=== PATIENT | female | born 1940 | race Caucasian/White ===

== ENCOUNTER 2024-03-23 06:17 | Day surgery (SDC) | payer OTHER ==
[~2024-03-23] VITALS: Ht 152.4 cm; Wt 67.2 kg
[2024-03-23] MEDS ORDERED: SODIUM CHLORIDE 0.9% 1,000 ML ONE (07:43)
[2024-03-23] MEDS: SODIUM CHLORIDE 0.9% 1,000 ML IV ONE (08:41)
[2024-03-23] MEDS ORDERED: MIDAZOLAM HCL 2 MG/2 ML VIAL ONE (08:45)
[2024-03-23] MEDS ORDERED: FentaNYL CITRATE PF 100 MCG/2 ML VIAL ONE (08:45)
[2024-03-23 09:18] VITALS: PULSE 64; RESP 21; O2SAT 100
[2024-03-23] MEDS ORDERED: MethylPREDNISolone SOD SUCC 125 MG/2 ML VIAL ONE (10:15)
[2024-03-23] MEDS: MethylPREDNISolone SOD SUCC 125 MG/2 ML VIAL IVP ONE (10:20)
[2024-03-23] MEDS ORDERED: LIDOCAINE 2% 11 ML JELLY ONE (12:00)
[2024-03-23] MEDS ORDERED: LIDOCAINE 4% 50 ML SOLUTION ONE (12:00)
[2024-03-23] MEDS ORDERED: BENZOCAINE 20% 50 MCG/SPRAY 57 GM ONE (12:00)
== END 2024-03-23 12:45 | disposition home or self-care (01) ==
LOC: SURGERY 06:17
PROVIDERS: ATTEND Internal Medicine Critical Care Medicine
DX: R05.3 Chronic cough (principal); R06.2 Wheezing; R49.0 Dysphonia; R04.2 Hemoptysis; R06.1 Stridor; R91.8 Other nonspecific abnormal finding of lung field; B37.0 Candidal stomatitis; R60.0 Localized edema
CPT/HCPCS: 87206; 87101; 87220; 87070; 88108; 31623; 31624; 71045; 87015; J3010; J2250; J2919; J7030; Z7610

== ENCOUNTER 2024-11-11 06:20 | Day surgery (SDC) | payer OTHER ==
[~2024-11-11] VITALS: Ht 152.4 cm; Wt 66.4 kg
[2024-11-11] MEDS ORDERED: LIDOCAINE 4% 50 ML SOLUTION TP ONE (06:21)
[2024-11-11] MEDS ORDERED: LIDOCAINE 2% 11 ML JELLY TP ONE (06:21)
[2024-11-11] MEDS ORDERED: BENZOCAINE 20% 50 MCG/SPRAY 57 GM TP ONE (06:21)
[2024-11-11] MEDS ORDERED: ALBUTEROL SULFATE 2.5 MG/0.5 ML NEB SOLUTION NEB ONE (06:21)
[2024-11-11] MEDS ORDERED: LOSA-381 PO (06:46)
[2024-11-11] MEDS ORDERED: ATOR10TA69 PO (06:46)
[2024-11-11] MEDS ORDERED: AMLO2.5T29 PO (06:46)
[2024-11-11] MEDS ORDERED: GABA-529 PO (06:46)
[2024-11-11] MEDS ORDERED: ALEN70TA80 PO (06:46)
[2024-11-11] MEDS ORDERED: CYAN-53 PO (06:46)
[2024-11-11] MEDS ORDERED: ISOS30TA68 PO (06:46)
[2024-11-11] MEDS ORDERED: ALLO300T2 PO (06:46)
[2024-11-11] MEDS ORDERED: MONT-40 PO (06:46)
[2024-11-11] MEDS ORDERED: PANT40TA54 PO (06:46)
[2024-11-11] MEDS ORDERED: ASPI-1450 PO (06:46)
[2024-11-11] MEDS ORDERED: CARV12.530 PO (06:46)
[2024-11-11] MEDS ORDERED: FLUT16H NASAL (06:46)
[2024-11-11] MEDS ORDERED: DOXY100C5 PO (06:46)
[2024-11-11] MEDS ORDERED: CLOP75TA32 PO (06:46)
[2024-11-11] MEDS ORDERED: ALBU18HF12 IH (06:47)
[2024-11-11] MEDS ORDERED: ASCO500C18 PO (06:47)
[2024-11-11] MEDS ORDERED: SODIUM CHLORIDE 0.9% 1,000 ML ONE (06:51)
[2024-11-11] MEDS: SODIUM CHLORIDE 0.9% 1,000 ML IV ONE (07:12)
[2024-11-11] MEDS ORDERED: FentaNYL CITRATE PF 100 MCG/2 ML VIAL ONE (08:43)
[2024-11-11] MEDS ORDERED: MIDAZOLAM HCL 2 MG/2 ML VIAL ONE (08:43)
== END 2024-11-11 09:15 | disposition home or self-care (01) ==
LOC: SURGERY 06:20
PROVIDERS: ATTEND Internal Medicine Critical Care Medicine
DX: R05.3 Chronic cough (principal); Z53.8 Procedure and treatment not carried out for other reasons; R91.1 Solitary pulmonary nodule; E78.00 Pure hypercholesterolemia, unspecified; I10 Essential (primary) hypertension; Z98.51 Tubal ligation status; Z95.0 Presence of cardiac pacemaker; Z98.890 Other specified postprocedural states; Z79.899 Other long term (current) drug therapy
CPT/HCPCS: 93005; J7030; J2250; J3010

== ENCOUNTER 2024-12-16 06:21 | Day surgery (SDC) | payer OTHER ==
[~2024-12-16] VITALS: Ht 152.4 cm; Wt 66.4 kg
[~2024-12-16 06:21] MED LIST: ALBU18HF12 IH; ALEN70TA80 PO; ALLO300T2 PO; AMLO2.5T29 PO; ASCO500C18 PO; ASPI-1450 PO; ATOR10TA69 PO; CARV12.530 PO; CLOP75TA32 PO; CYAN-53 PO; DOXY100C5 PO; FLUT16H NASAL; GABA-529 PO; ISOS30TA68 PO; LOSA-381 PO; MONT-40 PO; PANT40TA54 PO
[2024-12-16] MEDS ORDERED: LIDOCAINE 2% 11 ML JELLY TP ONE (06:22)
[2024-12-16] MEDS ORDERED: LIDOCAINE 4% 50 ML SOLUTION TP ONE (06:22)
[2024-12-16] MEDS ORDERED: ALBUTEROL SULFATE 2.5 MG/0.5 ML NEB SOLUTION NEB ONE (06:22)
[2024-12-16] MEDS ORDERED: BENZOCAINE 20% 50 MCG/SPRAY 57 GM TP ONE (06:22)
[2024-12-16] MEDS ORDERED: SODIUM CHLORIDE 0.9% 1,000 ML ONE (06:55)
[2024-12-16] MEDS: SODIUM CHLORIDE 0.9% 1,000 ML IV ONE (07:47)
[2024-12-16] MEDS ORDERED: FentaNYL CITRATE PF 100 MCG/2 ML VIAL ONE (07:59)
[2024-12-16] MEDS ORDERED: MIDAZOLAM HCL 2 MG/2 ML VIAL ONE (08:00)
[2024-12-16 09:00] VITALS: PULSE 76; RESP 22; O2SAT 98
[2024-12-16] MEDS ORDERED: MethylPREDNISolone SOD SUCC 125 MG/2 ML VIAL ONE (09:21)
[2024-12-16] MEDS: MethylPREDNISolone SOD SUCC 125 MG/2 ML VIAL IVP ONE (09:23)
== END 2024-12-16 14:15 | disposition home or self-care (01) ==
LOC: SURGERY 06:21
PROVIDERS: ATTEND Internal Medicine Critical Care Medicine
DX: R05.3 Chronic cough (principal); J38.4 Edema of larynx; B37.0 Candidal stomatitis; I10 Essential (primary) hypertension; Z79.899 Other long term (current) drug therapy; Z98.51 Tubal ligation status; Z98.890 Other specified postprocedural states; Z98.49 Cataract extraction status, unspecified eye; Z95.0 Presence of cardiac pacemaker; Z86.73 Personal history of transient ischemic attack (TIA), and cerebral infarction without residual deficits
CPT/HCPCS: 31623; 93005; 87206; 87101; 87220; 87070; 88108; 31624; 94640; 71045; 87015; J3010; J2250; J2919; J7030; J7613; Z7610